=== PATIENT | female | born 1950 | race Caucasian/White ===

== ENCOUNTER → 2017-02-10 | Outpatient (CLI) | payer BC | LOC: MC.RAD 16:40 | DX: Z12.31 Encounter for screening mammogram for malignant neoplasm of breast (principal); Z80.3 Family history of malignant neoplasm of breast ==

== ENCOUNTER → 2018-06-21 | Outpatient (CLI) | payer BC, MEDICARE | LOC: MC.RAD 11:42 | DX: Z12.31 Encounter for screening mammogram for malignant neoplasm of breast (principal) ==

== ENCOUNTER → 2019-09-06 | Outpatient (CLI) | payer MEDICARE | LOC: MC.RAD 08:00 | DX: Z12.31 Encounter for screening mammogram for malignant neoplasm of breast (principal) ==

== ENCOUNTER → 2020-09-07 | Outpatient (CLI) | payer MEDICARE ==
[~2020-09-07] MED LIST: ASPIRIN 81M81 MG/TA2 PO; CALCIUM 600 PLU1 TAB PO; CALCIUM CARBON650 M2; NATURAL IRON65 MG; NEURONTIN300 MG/CAP PO; ONE-A-DAY ESSE1 EACH PO; PROAIR HFA0.09 MG/AC IH; REQUIP 1MG T1 MG/TAB PO
== END ==
LOC: MC.RAD 13:00
DX: Z12.31 Encounter for screening mammogram for malignant neoplasm of breast (principal)

== ENCOUNTER → 2021-09-17 | Outpatient (CLI) | payer MEDICARE | LOC: MC.RAD 08:30 | DX: Z12.31 Encounter for screening mammogram for malignant neoplasm of breast (principal); N64.89 Other specified disorders of breast ==

== ENCOUNTER → 2021-09-24 | Outpatient (CLI) | payer MEDICARE | LOC: MC.RAD 13:00 | DX: N64.89 Other specified disorders of breast (principal) ==

== ENCOUNTER 2023-06-10 20:01 | Emergency (ER) | payer MEDICARE ==
[~2023-06-10] VITALS: Ht 172.7 cm; Wt 61.4 kg
[2023-06-10 20:05] VITALS: TEMP 97.8
[2023-06-10] MEDS ORDERED: LR 1,000 ML IV ONE (20:15)
[2023-06-10 20:17] LABS: BASO % 0.4 % (0.0-2.0); EOS % 0.5 % (0.0-4.0); GRAN # 4.5 K/mm3 (1.4-6.5); GRAN % 60.2 % (42.2-75.2); HEMOGLOBIN 11.6 g/dl (12.5-16.0); LYMPH # 2.3 K/mm3 (1.2-3.4); LYMPH % 30.7 % (20.0-51.0); MEAN CELL VOLUME 90 fl (80.0-100.0); MEAN CORPUSCULAR HEMOGLOBIN 29 pg (27-31); MEAN CORPUSCULAR HGB CONC 33 g/dl (33.0-37.0); MEAN PLATELET VOLUME 8.8 fl (7.4-10.4); MONO # 0.6 K/mm3 (0.1-0.6); MONO % 7.9 % (1.7-9.3); PLATELET COUNT 215 K/mm3 (130-400); RED BLOOD COUNT 3.95 M/mm3 (4.10-5.30); REDCELL DISTRIBUTION WIDTH-CV 13.2 % (11.5-14.5)
[2023-06-10 20:23] LABS: HEMATOCRIT 35.6 % (37.0-47.0)
[2023-06-10 20:25] LABS: PROTHROMBIN TIME 11.4 SECONDS (9.7-12.8)
[2023-06-10 20:28] LABS: PARTIAL THROMBOPLASTIN TIME 26.4 SECONDS (26.0-37.0)
[2023-06-10 20:39] LABS: ALANINE AMINOTRANSFERASE 15 U/L (0-55); ALBUMIN 3.8 gm/dL (3.4-4.8); ALKALINE PHOSPHATASE 65 U/L (40-150); ANION GAP 9 mmol/L (7-16); AST,SGOT 25 U/L (5-34); BILIRUBIN,TOTAL 0.3 mg/dL (0.2-1.2); BLOOD UREA NITROGEN 29 mg/dL (10-20); CARBON DIOXIDE 26 mmol/L (23-31); CHLORIDE 104 mmol/L (98-107); CREATININE, serum 1.35 mg/dL (0.57-1.11); GLUCOSE 142 mg/dL (70-99); POTASSIUM 4.2 mmol/L (3.5-4.5); SODIUM 139 mmol/L (136-145); TOTAL PROTEIN 6.5 gm/dL (6.2-8.1)
[2023-06-10 20:47] LABS: TROPONIN-I < 0.010 ng/mL (0.00-0.033)
[2023-06-10 21:15] VITALS: BP 127/65; PULSE 85
[2023-06-10] MEDS ORDERED: rOPINIRole 1 MG TAB PO ONE (21:15)
== END 2023-06-10 20:24 | disposition home or self-care (01) ==
LOC: COL.ER 20:01
PROVIDERS: Family Medicine
DX: R55 Syncope and collapse (principal)
CPT/HCPCS: J7120

== ENCOUNTER → 2023-10-06 | Outpatient (CLI) | payer MEDICARE | LOC: MC.RAD 13:58 | DX: Z12.31 Encounter for screening mammogram for malignant neoplasm of breast (principal) ==